=== PATIENT | male | born 1985 | race African-American/Black ===

== ENCOUNTER 2016-09-17 11:44 | Emergency (ER) | payer MEDICAID ==
[2016-09-17 13:44] VITALS: BP 135/94
== END 2016-09-17 13:45 | disposition home or self-care (01) ==
LOC: ED 11:44
DX: S16.1XXA Strain of muscle, fascia and tendon at neck level, initial encounter (principal); S39.012A Strain of muscle, fascia and tendon of lower back, initial encounter; R51 Headache; X50.0XXA Overexertion from strenuous movement or load, initial encounter; Y93.89 Activity, other specified; Y99.0 Civilian activity done for income or pay; Y92.89 Other specified places as the place of occurrence of the external cause
CPT/HCPCS: J1885

== ENCOUNTER 2017-01-24 15:45 | Emergency (ER) | payer OTHER ==
[2017-01-24 15:56] VITALS: BP 128/92
== END 2017-01-24 16:45 | disposition left against medical advice (07) ==
LOC: ED 15:45
DX: Z53.21 Procedure and treatment not carried out due to patient leaving prior to being seen by health care provider (principal)